=== PATIENT | male | born 1960 | race Caucasian/White ===

== ENCOUNTER 2020-08-10 09:19 | Day surgery (SDC) | payer BC ==
[2020-08-10] MEDS ORDERED: Ringers Lactate 1,000 ML IV ONE (09:42)
[2020-08-10] MEDS ORDERED: propofoL 200 MG/20 ML VIAL IV ONE (10:34)
[2020-08-10] MEDS ORDERED: LIDOCAINE 1% MPF 5 ML VIAL ONE (10:34)
--- NOTE | 2020-08-10 11:03 | ENDO RPT ---
[address], [address] COLONOSCOPY PROCEDURE REPORT EXAM DATE: 08/10/2020 PATIENT NAME: Isaac Burton MR #: [id number] BIRTHDATE: 1960 ATTENDING: Alvaro Castle DR STATUS: outpatient CHECKER/STOCKER: Manju George RN and Hesham Casper [facility] INDICATIONS: The patient is a 59 yr old Male here for a colonoscopy due to colon cancer screening PROCEDURE PERFORMED: Colonoscopy with biopsy - cold polypectomy MEDICATIONS: Per Anesthesia. ESTIMATED BLOOD LOSS: None CONSENT: The patient understands the risks and benefits of the procedure and understands that these risks include, but are not limited to: sedation, allergic reaction, infection, perforation and/or bleeding. Alternative means of evaluation and treatment include, among others: physical exam, x-rays, and/or surgical intervention. The patient elects to proceed with this endoscopic procedure. DESCRIPTION OF PROCEDURE: During intra-op preparation period all mechanical medical equipment was checked for proper function. Hand hygiene and appropriate measures for infection prevention was taken. Procedure, possible complications, alternatives including, but not limited to possibility of bleeding, perforation, tear, infection, sepsis, need for surgery, need for blood transfusion, were explained to the patient. After the risks, benefits and alternatives of the procedure were thoroughly explained, Informed consent was verified, confirmed and timeout was successfully executed by the treatment team. The patient was placed in the left lateral position. A digital rectal exam was performed and revealed internal hemorrhoids. After appropriate level of anesthesia, the scope was passed. The EC-[id number] ([id number]) endoscope was introduced through the anus and advanced to the cecum, which was identified by both the appendix and ileocecal valve. The quality of the prep was fair. The instrument was then slowly withdrawn as the colon was fully examined. Scope withdrawal time was 10 minutes. COLON FINDINGS: Four small smooth and polypoid shaped semi-pedunculated polyps were found in the ascending colon, at the splenic flexure, in the sigmoid colon, and rectum. A polypectomy was performed with a cold snare, using snare cautery and with cold forceps. The resection was complete, the polyp tissue was completely retrieved and sent to histology. Diverticulum was found in the sigmoid colon. The opening was small. Moderate sized internal hemorrhoids were found. Retroflexed views revealed no abnormalities. The scope was then completely withdrawn from the patient and the procedure terminated. ADVERSE EVENTS: There were no complications. IMPRESSIONS: 1. Four small semi-pedunculated polyps were found in the ascending colon, at the splenic flexure, in the sigmoid colon, and rectum; polypectomy was performed with a cold snare, using snare cautery and with cold forceps 2. Diverticulum in the sigmoid colon 3. Moderate sized internal hemorrhoids RECOMMENDATIONS: 1. avoid NSAIDS 2. avoid NSAIDS for 2 weeks 3. await biopsy results 4. fiber rich diet 5. follow-up: office 2 week(s) 6. Monitor for any evidence of rectal bleeding. 7. yearly hemoquant 8. hemorrhoidal hygiene 9. increase dietary water RECALL: Return in 1 year(s) for Colonoscopy, pending biopsy results. Pending Biopsy Alvaro Castle DR eSigned: Alvaro Castle DR 08/10/2020 11:03 AM cc: CPT CODES: ICD9 CODES: PATIENT NAME: Isaac Burton MR#: [id number]
[2020-08-10 11:45] VITALS: O2SAT 96
[2020-08-10 11:46] VITALS: BP 122/79; TEMP 98.1
== END 2020-08-10 11:50 | disposition home or self-care (01) ==
LOC: OR 09:19
PROVIDERS: ATTEND Surgery
PROC: 0DBN8ZX Excision of Sigmoid Colon, Via Natural or Artificial Opening Endoscopic, Diagnostic (ICD-10-PCS; 2020-08-10)
PROC: 0DBP8ZX Excision of Rectum, Via Natural or Artificial Opening Endoscopic, Diagnostic (ICD-10-PCS; 2020-08-10)
PROC: 0DBM8ZX Excision of Descending Colon, Via Natural or Artificial Opening Endoscopic, Diagnostic (ICD-10-PCS; 2020-08-10)
PROC: 0DBK8ZX Excision of Ascending Colon, Via Natural or Artificial Opening Endoscopic, Diagnostic (ICD-10-PCS; principal; 2020-08-10 11:30)
DX: Z12.11 Encounter for screening for malignant neoplasm of colon (principal); D12.7 Benign neoplasm of rectosigmoid junction; D12.2 Benign neoplasm of ascending colon; D12.4 Benign neoplasm of descending colon; D12.5 Benign neoplasm of sigmoid colon; K62.1 Rectal polyp; K63.5 Polyp of colon; K64.8 Other hemorrhoids; K57.30 Diverticulosis of large intestine without perforation or abscess without bleeding; Z20.822 Contact with and (suspected) exposure to COVID-19
CPT/HCPCS: 88305; 45380; U0002; J2704; J7120

== ENCOUNTER 2024-03-25 06:59 | Day surgery (SDC) | payer BC ==
[2024-03-24 09:00] LABS: Absolute Eosinophils 0.1 K/uL (0-0.5); Absolute Lymphocytes (CBC) 1.9 K/uL (0.7-4.9); Absolute Monocytes 0.5 K/uL (0.1-1.3); Absolute Neutrophil 4.4 K/uL (1.8-8.0); Basophils % 0.5 % (0-1.3); Eosinophils % 1.6 % (0-4.4); Hematocrit 43.5 % (39.6-49.0); Lymphocytes % 27.7 % (15.3-44.8); MCH 30.1 pg (27.0-35.0); MCHC 34.4 g/dL (32.0-36.0); MCV 87.5 fL (80-100); MPV 7.7 fL (7.6-11.3); Monocytes % 7.2 % (3.3-12.3); Nucleated Red Blood Cells % 0.1 % (0-0); Platelets 164 thou/uL (152-406); RBC Red Blood Cell Count 4.97 M/uL (4.33-5.43); Red Cell Distribution Width 14.4 % (12.1-15.2)
[2024-03-24 09:15] LABS: Anion Gap 11.2 mEq/L (5.0-15.0); Potassium 4.2 mEq/L (3.5-5.1)
--- NOTE | 2024-03-24 16:51 | EKG ---
Test Date: 2024-03-24 Test Time: 08:38:49 Bag Sealer: TONJA MEASUREMENT RESULTS: Intervals: Rate: 74 IN: 166 QRSD: 126 QT: 398 QTc: 441 Friant: P: 46 IN: 166 QRS: 1 T: 22 INTERPRETIVE STATEMENTS: Normal sinus rhythm Right bundle branch block Abnormal ECG No previous ECG available for comparison Electronically Signed On 03-24-24 16:49:57 CDT by Rj Chawla
[2024-03-25] MEDS ORDERED: propofoL 200 MG/20 ML VIAL IV ONE ×2 (07:10→08:44)
[2024-03-25] MEDS ORDERED: LIDOCAINE 1% MPF 5 ML VIAL ONE (07:10)
[2024-03-25] MEDS ORDERED: Ringers Lactate 1,000 ML IV ONE (07:18)
[2024-03-25 10:46] VITALS: BP 146/94; TEMP 97; O2SAT 96
== END 2024-03-25 09:04 | disposition home or self-care (01) ==
LOC: OR 06:59
PROVIDERS: ATTEND Surgery
PROC: 0DBL8ZX Excision of Transverse Colon, Via Natural or Artificial Opening Endoscopic, Diagnostic (ICD-10-PCS; 2024-03-25)
PROC: 0DBN8ZX Excision of Sigmoid Colon, Via Natural or Artificial Opening Endoscopic, Diagnostic (ICD-10-PCS; principal; 2024-03-25 08:00)
DX: Z12.11 Encounter for screening for malignant neoplasm of colon (principal); D12.3 Benign neoplasm of transverse colon; D12.5 Benign neoplasm of sigmoid colon; K57.30 Diverticulosis of large intestine without perforation or abscess without bleeding; K64.8 Other hemorrhoids
CPT/HCPCS: 93005; 85025; 80048; 36415; 88305; 45385; J2704; J2001; J7120